=== PATIENT | male | born 1960 | race Caucasian/White ===

== ENCOUNTER 2021-09-09 10:40 | Emergency (ER) | payer BC, MEDICAID ==
[2021-09-09] MEDS ORDERED: Sodium Chloride 0.9% 2.5 ML Syringe FLUSH PRN (10:41)
[2021-09-09] MEDS ORDERED: Sodium Chloride 0.9% 10 ML Syringe FLUSH PRN (10:41)
[2021-09-09 12:14] LABS: CARBON DIOXIDE,CO2 25.8 mmol/L (21.0-32.0); POTASSIUM,K 4.2 mmol/L (3.5-5.1)
[2021-09-09] MEDS ORDERED: Iopamidol 755 MG/ML 500 ML Multipack Bottle IVPUSH STA (12:29)
[2021-09-09] MEDS ORDERED: Ertapenem 1 GM in Sodium Chloride 0.9% 50 ML IV ONE (13:19)
[2021-09-09] MEDS ORDERED: Nicotine 14 MG/24 Hr Patch TRDERM ONE (14:37)
== END 2021-09-09 15:53 | disposition home or self-care (01) ==
LOC: MW.ED 10:40
DX: K35.80 Unspecified acute appendicitis (principal); Z88.5 Allergy status to narcotic agent; Z20.822 Contact with and (suspected) exposure to COVID-19
CPT/HCPCS: 36415; 74177; 80053; 81003; 85025; 87635; 96365; 99284; J1335; J3490; Q9967; U0002

== ENCOUNTER 2021-09-22 14:28 | Emergency (ER) | payer OTHER, BC ==
[2021-09-22] MEDS ORDERED: Cyclobenzaprine 10 MG Tab PO ONE (15:40)
[2021-09-22] MEDS ORDERED: Acetaminophen/HYDROcodone 325-5 MG Tab PO ONE (15:40)
[2021-09-22] MEDS ORDERED: Ibuprofen 600 MG Tab PO ONE (15:40)
[2021-09-22] MEDS ORDERED: Diphtheria,Pertussis(Acell),Tetanus Vaccine 0.5 ML Syringe IM ONE (15:41)
[2021-09-22] MEDS ORDERED: Octyl 2-Cyanoacrylate 1 Tube ONE (16:14)
[2021-09-22 16:59] LABS: BLOOD UREA NITROGEN,BUN 12 mg/dL (7.0-18.0); CARBON DIOXIDE,CO2 24.9 mmol/L (21.0-32.0); CHLORIDE,CL 103 mmol/L (98-107); GLUCOSE RANDOM 83 mg/dL (74-106); POTASSIUM,K 4.4 mmol/L (3.5-5.1); SODIUM,NA 137 mmol/L (136-148)
== END 2021-09-22 17:32 | disposition home or self-care (01) ==
LOC: MW.ED 14:28
DX: S06.0X9A Concussion with loss of consciousness of unspecified duration, initial encounter (principal); S01.01XA Laceration without foreign body of scalp, initial encounter; Z79.899 Other long term (current) drug therapy; Z88.6 Allergy status to analgesic agent; Z23 Encounter for immunization; V86.95XA Unspecified occupant of 3- or 4- wheeled all-terrain vehicle (ATV) injured in nontraffic accident, initial encounter; Y92.410 Unspecified street and highway as the place of occurrence of the external cause
CPT/HCPCS: 12001; 36415; 70450; 72125; 80053; 85025; 90471; 90715; 99284; A9270

== ENCOUNTER 2021-10-28 11:52 | Emergency (ER) | payer OTHER, BC ==
[2021-10-28] MEDS ORDERED: Morphine 4 MG/ML VIAL IVPUSH ONE (13:10)
[2021-10-28] MEDS ORDERED: fentaNYL 50 MCG/ML SDV IVPUSH ONE (13:10)
[2021-10-28] MEDS ORDERED: Sodium Chloride 0.9% 1,000 ML IV ONE (13:10)
[2021-10-28 13:51] LABS: BLOOD UREA NITROGEN,BUN 19 mg/dL (7.0-18.0); CARBON DIOXIDE,CO2 26.1 mmol/L (21.0-32.0); CHLORIDE,CL 102 mmol/L (98-107); GLUCOSE RANDOM 101 mg/dL (74-106); POTASSIUM,K 4.1 mmol/L (3.5-5.1); SODIUM,NA 137 mmol/L (136-148)
[2021-10-28 13:52] LABS: ESTIMATED GFR 63 mL/min (>60)
[2021-10-28] MEDS ORDERED: Lidocaine 5% 700 MG Patch TRDERM ONE (14:44)
[2021-10-28] MEDS ORDERED: Iopamidol 755 MG/ML 500 ML Multipack Bottle IVPUSH STA (16:17)
== END 2021-10-28 15:43 | disposition home or self-care (01) ==
LOC: MW.ED 11:52
DX: S20.211A Contusion of right front wall of thorax, initial encounter (principal); Z88.5 Allergy status to narcotic agent; V86.99XA Unspecified occupant of other special all-terrain or other off-road motor vehicle injured in nontraffic accident, initial encounter; Y92.410 Unspecified street and highway as the place of occurrence of the external cause
CPT/HCPCS: 36415; 70450; 71260; 72125; 74177; 80053; 84484; 85025; 85610; 93005; 96361; 96374; 99284; A9270; J3010; J7030; Q9967; 93010; 99285

== ENCOUNTER 2022-08-20 07:25 | Day surgery (SDC) | payer MEDICAID, OTHER ==
[~2022-08-20 07:25] MED LIST: Lactated Ringers 1,000 ML IV SCH
[2022-08-20] MEDS ORDERED: Propofol 200 MG/20 ML SDV ONE ×2 (07:29→09:04)
[2022-08-20] MEDS ORDERED: Lactated Ringers 1,000 ML IV SCH (09:30)
== END 2022-08-20 10:05 | disposition home or self-care (01) ==
LOC: MW.SDS 07:25
PROVIDERS: ATTEND Surgery
DX: D12.5 Benign neoplasm of sigmoid colon (principal); K29.50 Unspecified chronic gastritis without bleeding; K21.00 Gastro-esophageal reflux disease with esophagitis, without bleeding; K44.9 Diaphragmatic hernia without obstruction or gangrene; K57.30 Diverticulosis of large intestine without perforation or abscess without bleeding; J44.9 Chronic obstructive pulmonary disease, unspecified; F41.9 Anxiety disorder, unspecified; F15.91 Other stimulant use, unspecified, in remission; Z90.6 Acquired absence of other parts of urinary tract; F17.210 Nicotine dependence, cigarettes, uncomplicated; Z87.448 Personal history of other diseases of urinary system; Z87.442 Personal history of urinary calculi; Z79.899 Other long term (current) drug therapy; Z88.8 Allergy status to other drugs, medicaments and biological substances
CPT/HCPCS: 43239; 45380; J2704; J7120; 00813

== ENCOUNTER 2023-04-20 08:40 | Emergency (ER) | payer MEDICAID, OTHER ==
[2023-04-20] MEDS ORDERED: Sodium Chloride 0.9% 2.5 ML Syringe FLUSH PRN (08:50)
[2023-04-20] MEDS ORDERED: Sodium Chloride 0.9% 1,000 ML IV ONE (08:50)
[2023-04-20] MEDS ORDERED: Sodium Chloride 0.9% 10 ML Syringe FLUSH PRN (08:50)
[2023-04-20] MEDS ORDERED: Ondansetron 4 MG/2 ML SDV IVPUSH ONE (08:52)
[2023-04-20] MEDS ORDERED: Piperacillin/Tazobactam 3.375 GM in Sodium Chloride 0.9% 100 ML IV ONE (08:53)
[2023-04-20] MEDS ORDERED: fentaNYL 50 MCG/ML SDV IVPUSH ONE (08:53)
[2023-04-20] MEDS ORDERED: Naloxone 0.4 MG/ML SDV IVPUSH PRN (08:53)
[2023-04-20 09:11] LABS: BASOPHILS ABSOLUTE AUTO 0.05 K/uL (0.00-0.20); BASOPHILS PERCENT AUTO 0.4 % (0.0-1.0); EOSINOPHILS ABSOLUTE AUTO 0.08 K/uL (0.00-0.45); EOSINOPHILS PERCENT AUTO 0.6 % (0.0-6.0); HEMATOCRIT 46.6 % (42.0-52.0); HEMOGLOBIN 15.9 g/dL (14.0-18.0); IMMATURE GRAN ABSOLUTE AUTO 0.06 K/uL (0.00-0.05); IMMATURE GRAN PERCENT AUTO 0.4 % (0.0-0.4); LYMPHOCYTES ABSOLUTE AUTO 1.02 K/uL (1.00-4.80); LYMPHOCYTES PERCENT AUTO 7.5 % (24.0-44.0); MEAN CORPUSCULAR HEMOGLOBIN 30.5 pg (28.0-32.0); MEAN CORPUSCULAR HGB CONC 34.1 g/dL (32.0-36.0); MEAN CORPUSCULAR VOLUME 89.3 fL (83.0-99.0); MEAN PLATELET VOLUME 11.1 fL (9.4-12.4); MONOCYTES ABSOLUTE AUTO 0.82 K/uL (0.00-0.80); NEUTROPHILS ABSOLUTE AUTO 11.63 K/uL (1.80-7.70); NEUTROPHILS PERCENT AUTO 85.1 % (41.0-71.0); PLATELET COUNT,PLT 152 K/uL (150-400); RED BLOOD CELL COUNT 5.22 M/uL (4.52-5.90); WHITE BLOOD CELL COUNT,WBC 13.66 K/uL (3.9-11.3)
[2023-04-20 09:23] LABS: INR 1.09 (0.86-1.11); PTT,PARTIAL THROMBOPLSTIN TIME 36.2 SEC (23.9-30.7)
[2023-04-20 09:48] LABS: A/G RATIO 0.7 (0.9-1.6); ALBUMIN 3.2 g/dL (3.4-5.0); CALCIUM 9.3 mg/dL (8.5-10.1); CREATININE 1.4 mg/dL (0.8-1.3); EST CRCL DRUG DOSING (CG) 61.83 mL/min; PROTEIN TOTAL,TP 7.7 g/dL (6.4-8.2)
[2023-04-20 09:49] LABS: LACTIC ACID 1.4 mmol/L (0.4-2.0)
[2023-04-20] MEDS ORDERED: Iopamidol 755 MG/ML 500 ML Multipack Bottle IVPUSH STA (10:17)
[2023-04-20 10:56] LABS: APPEARANCE,URINE CLEAR; BILIRUBIN,URINE NEGATIVE (NEGATIVE); COLOR,URINE YELLOW; GLUCOSE,URINE NEGATIVE (NEGATIVE); KETONES,URINE 15 mg/dL (NEGATIVE); LEUKOCYTE ESTERASE,URINE NEGATIVE (NEGATIVE); NITRITE,URINE NEGATIVE (NEGATIVE); OCCULT BLOOD,URINE NEGATIVE (NEGATIVE); PROTEIN,URINE NEGATIVE (NEGATIVE)
== END 2023-04-20 11:45 | disposition left against medical advice (07) ==
LOC: MW.ED 08:40
DX: K35.80 Unspecified acute appendicitis (principal); J44.9 Chronic obstructive pulmonary disease, unspecified; K21.9 Gastro-esophageal reflux disease without esophagitis; F17.210 Nicotine dependence, cigarettes, uncomplicated; Z79.899 Other long term (current) drug therapy; Z88.5 Allergy status to narcotic agent
CPT/HCPCS: 36415; 74177; 80053; 81003; 83605; 83690; 85025; 85610; 85730; 87040; 96365; 96375; 99284; J2405; J2543; J3010; J3490; J7030; Q9967; 99291

== ENCOUNTER 2023-11-23 21:40 | Day surgery (SDC) | payer MEDICAID ==
[2023-11-23 22:00] LABS: BASOPHILS ABSOLUTE AUTO 0.05 K/uL (0.00-0.20); BASOPHILS PERCENT AUTO 0.6 % (0.0-1.0); EOSINOPHILS ABSOLUTE AUTO 0.17 K/uL (0.00-0.45); EOSINOPHILS PERCENT AUTO 1.9 % (0.0-6.0); HEMATOCRIT 45.7 % (42.0-52.0); HEMOGLOBIN 15.3 g/dL (14.0-18.0); IMMATURE GRAN ABSOLUTE AUTO 0.02 K/uL (0.00-0.05); IMMATURE GRAN PERCENT AUTO 0.2 % (0.0-0.4); LYMPHOCYTES ABSOLUTE AUTO 0.74 K/uL (1.00-4.80); LYMPHOCYTES PERCENT AUTO 8.2 % (24.0-44.0); MEAN CORPUSCULAR HEMOGLOBIN 30.3 pg (28.0-32.0); MEAN CORPUSCULAR HGB CONC 33.5 g/dL (32.0-36.0); MEAN CORPUSCULAR VOLUME 90.5 fL (83.0-99.0); MEAN PLATELET VOLUME 10.4 fL (9.4-12.4); MONOCYTES ABSOLUTE AUTO 0.46 K/uL (0.00-0.80); MONOCYTES PERCENT AUTO 5.1 % (0.0-8.0); NEUTROPHILS ABSOLUTE AUTO 7.59 K/uL (1.80-7.70); PLATELET COUNT,PLT 175 K/uL (150-400); RED BLOOD CELL COUNT 5.05 M/uL (4.52-5.90); WHITE BLOOD CELL COUNT,WBC 9.03 K/uL (3.9-11.3)
[2023-11-23] MEDS: Sodium Chloride 0.9% 2.5 ML Syringe FLUSH PRN (22:04)
[2023-11-23] MEDS: Ondansetron 4 MG/2 ML SDV IVPUSH ONE (22:04)
[2023-11-23] MEDS: fentaNYL 50 MCG/ML SDV IVPUSH ONE (22:04)
[2023-11-23] MEDS: Sodium Chloride 0.9% 10 ML Syringe FLUSH PRN (22:05)
[2023-11-23] MEDS: Sodium Chloride 0.9% 1,000 ML IV ONE (22:06)
[2023-11-23 22:21] LABS: A/G RATIO 1.1 (0.9-1.6); ALBUMIN 3.7 g/dL (3.4-5.0); BILIRUBIN TOTAL 0.6 mg/dL (0.2-1.0); CALCIUM 9.1 mg/dL (8.5-10.1); CARBON DIOXIDE,CO2 26.6 mmol/L (21.0-32.0); CREATININE 1.3 mg/dL (0.8-1.3); EST CRCL DRUG DOSING (CG) 65.73 mL/min; POTASSIUM,K 3.9 mmol/L (3.5-5.1); PROTEIN TOTAL,TP 7.1 g/dL (6.4-8.2)
[2023-11-23] MEDS: Iopamidol 755 MG/ML 500 ML Multipack Bottle IVPUSH STA (22:30)
[2023-11-23 22:52] LABS: APPEARANCE,URINE CLEAR; BILIRUBIN,URINE NEGATIVE (NEGATIVE); COLOR,URINE YELLOW; GLUCOSE,URINE NEGATIVE (NEGATIVE); KETONES,URINE NEGATIVE (NEGATIVE); LEUKOCYTE ESTERASE,URINE NEGATIVE (NEGATIVE); NITRITE,URINE NEGATIVE (NEGATIVE); OCCULT BLOOD,URINE NEGATIVE (NEGATIVE); PROTEIN,URINE NEGATIVE (NEGATIVE); UROBILINOGEN,URINE 0.2 EU/dL (<2.0)
[2023-11-23] MEDS ORDERED: cefOXitin 2 GM in Sodium Chloride 0.9% 50 ML IV ONE (23:55)
[2023-11-23] MEDS ORDERED: Ondansetron 4 MG/2 ML SDV IVPUSH PRN (23:58)
[2023-11-24] MEDS: fentaNYL 50 MCG/ML SDV IVPUSH SCH (00:22)
[2023-11-24] MEDS: cefOXitin 2 GM in Sodium Chloride 0.9% 50 ML IV SCH (00:22)
[2023-11-24] MEDS: Dextrose 5%-0.9% NaCl 1,000 ML IV SCH (00:23)
[2023-11-24] MEDS ORDERED: Lactated Ringers 1,000 ML IV SCH ×2 (07:15→09:00)
[2023-11-24] MEDS ORDERED: ceFAZolin 1 GM Vial ONE (07:21)
[2023-11-24] MEDS ORDERED: Bupivacaine 0.5% 30 ML SDV ONE (07:21)
[2023-11-24] MEDS ORDERED: fentaNYL 100 MCG/2 ML SDV ONE (07:27)
[2023-11-24] MEDS ORDERED: Propofol 200 MG/20 ML SDV ONE (07:27)
[2023-11-24] MEDS ORDERED: dexmedeTOMIDine HCl 200 MCG/2 ML SDV ONE (07:28)
[2023-11-24] MEDS ORDERED: Water For Injection, Sterile 20 ML ONE (07:28)
[2023-11-24] MEDS ORDERED: Lidocaine 1% 5 ML VIAL ONE (07:29)
[2023-11-24] MEDS ORDERED: Rocuronium Bromide 50 MG/5 ML Syringe ONE (07:29)
[2023-11-24] MEDS ORDERED: Dexamethasone 4 MG/ML 5 ML MDV ONE (07:29)
[2023-11-24] MEDS ORDERED: Ondansetron 4 MG/2 ML SDV ONE (07:29)
[2023-11-24] MEDS ORDERED: Bupivacaine 0.25% 30 ML SDV ONE (07:33)
[2023-11-24] MEDS ORDERED: Ropivacaine 0.5% 5 MG/ML 30 ML SDV ONE (07:33)
[2023-11-24] MEDS ORDERED: Ondansetron 4 MG/2 ML SDV IVPUSH PRN (07:38)
[2023-11-24] MEDS ORDERED: Metoclopramide 10 MG/2 ML SDV IVPUSH PRN (07:38)
[2023-11-24] MEDS ORDERED: HYDROmorphone 1 MG/ML Syringe IVPUSH PRN (07:38)
[2023-11-24] MEDS ORDERED: fentaNYL 50 MCG/ML SDV IVPUSH PRN ×2 (07:38→09:04)
[2023-11-24] MEDS ORDERED: Naloxone 0.4 MG/ML SDV IVPUSH PRN (07:38)
[2023-11-24] MEDS ORDERED: droPERidol 5 MG/2 ML SDV IVPUSH PRN (07:38)
[2023-11-24] MEDS ORDERED: Morphine 2 MG/ML SYRINGE IVPUSH PRN (07:38)
[2023-11-24] MEDS ORDERED: Albuterol 0.083% 2.5 MG/3 ML Neb Soln NEB PRN (07:38)
[2023-11-24] MEDS ORDERED: Magnesium Sulfate (4.06 MEQ/ML) 5 GM/10 ML SDV ONE (07:54)
[2023-11-24] MEDS ORDERED: Ketorolac 30 MG/ML SDV ONE (08:28)
[2023-11-24] MEDS ORDERED: Sugammadex Sodium 200 MG/2 ML VIAL IV ONE (08:28)
[2023-11-24] MEDS ORDERED: Acetaminophen/HYDROcodone 325-5 MG Tab PO PRN (09:03)
== END 2023-11-24 13:25 | disposition home or self-care (01) ==
LOC: MW.ED 21:40 → MW.SDS 23:59 → MW.MS 11-24 00:08 → MW.SDS 11-24 00:14
PROVIDERS: ATTEND Surgery
DX: K35.30 Acute appendicitis with localized peritonitis, without perforation or gangrene (principal); J44.9 Chronic obstructive pulmonary disease, unspecified; K21.9 Gastro-esophageal reflux disease without esophagitis; F41.9 Anxiety disorder, unspecified; F17.210 Nicotine dependence, cigarettes, uncomplicated; Z79.899 Other long term (current) drug therapy
CPT/HCPCS: 36415; 44970; 74177; 80053; 81003; 83690; 85025; 96361; 96365; 96375; 96376; 99285; J0131; J0665; J0694; J1100; J1885; J2405; J2704; J2795; J3010; J3475; J3490; J7030; J7042; Q9967; 00840; 64488; J0690